=== PATIENT | female | born 1970 | race Caucasian/White ===

== ENCOUNTER 2016-08-10 09:08 | Emergency (ER) | payer OTHER ==
[2016-08-10 09:15] VITALS: RESP 18
[2016-08-10] MEDS ORDERED: SODIUM CHLORIDE 0.9% 1,000 ML IV STA (09:22)
[2016-08-10] MEDS ORDERED: DICYCLOMINE 10 MG/ML 2 ML AMP IM STA (09:22)
[2016-08-10] MEDS ORDERED: RX INFO: IV CONTRAST WAS GIVEN 1 EACH MISC MISCELLANE PRN (09:22)
[2016-08-10] MEDS ORDERED: ONDANSETRON 4 MG/2 ML VIAL IVP STA (09:22)
--- NOTE | 2016-08-10 09:29 | ED ---
Abdominal Pain HPI - General Chief Complaint: Abdominal Pain Stated Complaint: abd pain Time Seen by Provider: 08/10/16 09:17 Source: patient, RN notes reviewed Mode of arrival: ambulatory Limitations: no limitations - History of Present Illness Initial Comments: 45-year-old female presents to the emergency department with a chief complaint of lower abdominal pain. Patient states been going on for about the last week. Patient states that across her abdomen. Patient states that she has had nausea and vomiting with this. Patient states she went to medics presents for dysuria. Patient has a vaginal discharge and pain. Patient denies any fever chills. Patient states that she was concerned due to her symptoms so she thought that she should be evaluated.Patient denies any recent fever, chills, shortness of breath, chest pain, back pain, numbness or tingling, dysuria or hematuria, constipation or diarrhea, headaches or visual changes, or any other current symptoms. - Related Data Home Medications Medication Instructions Recorded Confirmed ALPRAZolam [Xanax] 0.5 mg PO DAILY PRN 01/21/16 08/10/16 Vortioxetine Hydrobromide 10 mg PO DAILY 08/10/16 08/10/16 [Trintellix] Previous Rx's Medication Instructions Recorded Ciprofloxacin HCl [Cipro] 250 mg PO Q12HR #14 tablet 08/10/16 Docusate [Colace] 100 mg PO DAILY #7 capsule 08/10/16 Allergies Allergy/AdvReac Type Severity Reaction Status Date / Time No Known Allergies Allergy Verified 08/10/16 09:38 Review of Systems ROS Statement: Those systems with pertinent positive or pertinent negative responses have been documented in the HPI. ROS Other: All systems not noted in ROS Statement are negative. Past Medical History Past Medical History: No Reported History Additional Past Medical History / Comment(s): CHRONIC CONSTIPATION, STATES COUGH AND SINUS DRAINAGE-INSTRUCTED TO CALL DR UPTON'S OFFICE IF ANY SYMPTOMS BY 01/23/16 AM. History of Any Multi-Drug Resistant Organisms: None Reported Past Surgical History: Tubal Ligation, Uterine Ablation Past Anesthesia/Blood Transfusion Reactions: No Reported Reaction Past Psychological History: Anxiety, Depression Smoking Status: Current every day smoker Past Alcohol Use History: None Reported Additional Past Alcohol Use History / Comment(s): SMOKES 1 PPD. SMOKING FOR APPROX 31 YEARS. STARTED SMOKING AGE 14. Past Drug Use History: None Reported - Past Family History Father Family Medical History: Deep Vein Thrombosis (DVT) Additional Family Medical History / Comment(s): PACEMAKER Mother Family Medical History: Deep Vein Thrombosis (DVT) General Exam - General Exam Comments Initial Comments: General: The patient is awake and alert, in no distress, and does not appear acutely ill. Eye: Pupils are equal, round and reactive to light, extra-ocular movements are intact; there is normal conjunctiva bilaterally. No signs of icterus. Ears, nose, mouth and throat: There are moist mucous membranes and no oral lesions. Neck: The neck is supple, there is no tenderness. Cardiovascular: There is a regular rate and rhythm. No murmur, rub or gallop is appreciated. Respiratory: Lungs are clear to auscultation, respirations are non-labored, breath sounds are equal. No wheezes, stridor, rales, or rhonchi. Gastrointestinal: Soft, non-distended, normal tenderness to the umbilicus of the abdomen without masses or organomegaly noted. There is no rebound or guarding present. No CVA tenderness. Bowel sounds are unremarkable. Back: There is no tenderness to palpation in the midline. There is no obvious deformity. No rashes noted. Musculoskeletal: Normal ROM, no tenderness, There is no pedal edema. There is no calf tenderness or swelling. Sensation intact. Pulses equal bilaterally 2+. Neurological: CN II-XII intact, There are no obvious motor or sensory deficits. Coordination appears grossly intact. Speech is normal. Skin: Skin is warm and dry and no rashes or lesions are noted. Psychiatric: Cooperative, appropriate mood & affect, normal judgment. Limitations: no limitations Course Vital Signs 08/10/16 09:11 Temperature 98.2 F Pulse Rate 98 Respiratory 18 Rate Blood Pressure 149/90 O2 Sat by Pulse 100 Oximetry Medical Decision Making - Medical Decision Making 45-year-old female presents emergency Department chief complaint of abdominal pain. This time labwork and CAT scan were reviewed. At this time the patient does appear to have hematuria. Patient denies any changes in urination however there is concern for possible UTI versus other causes. We discussed we will start her on antibiotic however she also needs to see the urologist or hematuria. We discussed this also constipation and will be per director social. We discussed return parameters and follow-up and all patient's questions. She stated that she understood and she is negative plan. She will be discharged home. - Lab Data Result diagrams: 08/10/16 09:42 08/10/16 09:42 Lab Results 08/10/16 08/10/16 08/10/16 Range/Units 09:42 09:42 09:42 WBC 7.3 (3.8-10.6) k/uL RBC 4.50 (3.80-5.40) m/uL Hgb 14.6 (11.4-16.0) gm/dL Hct 44.3 (34.0-46.0) % MCV 98.3 (80.0-100.0) fL MCH 32.5 (25.0-35.0) pg MCHC 33.1 (31.0-37.0) g/dL RDW 12.8 (11.5-15.5) % Plt Count 329 (150-450) k/uL Neutrophils % 65 % Lymphocytes % 25 % Monocytes % 5 % Eosinophils % 2 % Basophils % 1 % Neutrophils # 4.8 (1.3-7.7) k/uL Lymphocytes # 1.8 (1.0-4.8) k/uL Monocytes # 0.3 (0-1.0) k/uL Eosinophils # 0.2 (0-0.7) k/uL Basophils # 0.1 (0-0.2) k/uL Sodium 139 (137-145) mmol/L Potassium 4.5 (3.5-5.1) mmol/L Chloride 106 (98-107) mmol/L Carbon Dioxide 24 (22-30) mmol/L Anion Gap 9 mmol/L BUN 14 (7-17) mg/dL Creatinine 0.65 (0.52-1.04) mg/dL Est GFR (MDRD) Af Amer >60 (>60 ml/min/1.73 sqM) Est GFR (MDRD) Non-Af >60 (>60 ml/min/1.73 sqM) Glucose 86 (74-99) mg/dL Calcium 9.5 (8.4-10.2) mg/dL Total Bilirubin 0.8 (0.2-1.3) mg/dL AST 26 (14-36) U/L ALT 20 (9-52) U/L Alkaline Phosphatase 62 (38-126) U/L Total Protein 7.6 (6.3-8.2) g/dL Albumin 4.5 (3.5-5.0) g/dL Amylase 67 (30-110) U/L Lipase 77 (23-300) U/L Urine Color Yellow Urine Appearance Clear (Clear) Urine pH 6.5 (5.0-8.0) Ur Specific [place] 1.022 (1.001-1.035) Urine Protein Trace H (Negative) Urine Glucose (UA) Negative (Negative) Urine Ketones 1+ H (Negative) Urine Blood Moderate H (Negative) Urine Nitrite Negative (Negative) Urine Bilirubin Negative (Negative) Urine Urobilinogen <2.0 (<2.0) mg/dL Ur Leukocyte Esterase Negative (Negative) Urine RBC 36 H (0-5) /hpf Urine WBC 1 (0-5) /hpf Ur Squamous Epith Cells 3 (0-4) /hpf Urine Bacteria Rare H (None) /hpf Urine Mucus Rare H (None) /hpf Disposition Clinical Impression: Hematuria, UTI (urinary tract infection), Constipation Disposition: HOME SELF-CARE Condition: Stable Instructions: Hematuria (ED) Additional Instructions: Please use medication as discussed. Please follow up with family doctor if symptoms have not improved over the next two days. Please return to the emergency room if your symptoms increase or worsen or for any other concerns. Prescriptions: Ciprofloxacin HCl [Cipro] 250 mg PO Q12HR #14 tablet Docusate [Colace] 100 mg PO DAILY #7 capsule Referrals: Zoey Mccann III, MD [Primary Care Provider] - 1-2 days Luis Eduardo Higgins MD [STAFF PHYSICIAN] - 1-2 days Time of Disposition: 11:27
[2016-08-10 10:19] LABS: Basophils # (A) 0.1 k/uL (0-0.2); Basophils % (A) 1 %; CH 32.2; CHCM 32.9; Eosinophils # (A) 0.2 k/uL (0-0.7); Eosinophils % (A) 2 %; HCT 44.3 % (34.0-46.0); HDW 2.28; HGB 14.6 gm/dL (11.4-16.0); Luc # (Auto) 0.14; Luc % (Auto) 2; Lymphocytes # (A) 1.8 k/uL (1.0-4.8); Lymphocytes % (A) 25 %; MCH 32.5 pg (25.0-35.0); MCHC 33.1 g/dL (31.0-37.0); MCV 98.3 fL (80.0-100.0); Mean Platelet Volume 6.4; Monocytes # (A) 0.3 k/uL (0-1.0); Monocytes % (A) 5 %; Neutrophils # (A) 4.8 k/uL (1.3-7.7); Neutrophils % (A) 65 %; RDW 12.8 % (11.5-15.5); WBC 7.3 k/uL (3.8-10.6); WBC (Perox) 7.15
[2016-08-10 10:26] LABS: ALT 20 U/L (9-52); AST 26 U/L (14-36); Alkaline Phosphatase 62 U/L (38-126); Amylase 67 U/L (30-110); Anion Gap 9 mmol/L; Appearance,Urine Clear (Clear); Bacteria,Urine Rare /hpf; Bilirubin,Urine Negative (Negative); Blood Urea Nitrogen 14 mg/dL (7-17); Calcium 9.5 mg/dL (8.4-10.2); Carbon Dioxide 24 mmol/L (22-30); Chloride 106 mmol/L (98-107); Glucose 86 mg/dL (74-99); Glucose,Urine (UA) Negative (Negative); Ketones,Urine 1+ (Negative); Leukocyte Esterase,Urine Negative (Negative); Mucus,Urine Rare /hpf; Nitrite,Urine Negative (Negative); Non-African American GFR(MDRD) >60 (>60 ml/min/1.73 sqM); PH, Urine 6.5 (5.0-8.0); Particle Count 3215; Protein,Urine Trace (Negative); RBC,Urine 36 /hpf (0-5); Sodium 139 mmol/L (137-145); Specific Gravity,Urine 1.022 (1.001-1.035); Squamous Epithelial Cell,Urine 3 /hpf (0-4); Total Bilirubin 0.8 mg/dL (0.2-1.3); Total Protein 7.6 g/dL (6.3-8.2); UA Billing (MACRO vs. MICRO) MICRO; Urobilinogen,Urine <2.0 mg/dL (<2.0); WBC,Urine 1 /hpf (0-5)
[2016-08-10 10:52] LABS: Potassium 4.5 mmol/L (3.5-5.1)
--- NOTE | 2016-08-10 11:24 | CT ---
EXAMINATION TYPE: CT abdomen pelvis w con DATE OF EXAM: 08/10/2016 10:11 AM COMPARISON: Pain INDICATION: pelvic pain DLP: 336.9 mGycm, Automated exposure control for dose reduction was used. CONTRAST: 100 mL of Omnipaque 300. Study performed without Oral Contrast TECHNIQUE: Axial images were obtained from above the diaphragm to the pubic rami in the axial plane a t 5 mm thick sections. Reconstructed images are reviewed on the computer in the coronal plane. FINDINGS: Limited CT sections are obtained the lung bases. The lung bases are clear. CT ABDOMEN: Liver: Normal Spleen: Normal Pancreas: Normal Adrenal glands: The adrenal glands are normal. Gallbladder: Normal Kidneys: No masses are evident. No hydronephrosis is present. No cysts are present. Delayed images were obtained through the kidneys, which remain unremarkable. Aorta: Vascular calcification is within the aorta. Inferior vena cava: Normal. CT PELVIS: Loops of bowel within the abdomen and pelvis are normal. Fecal debris is within the distal colon. Appendix: Normal as visualized. Urinary bladder: Normal. Genitourinary structures: Uterus is unremarkable. Adnexal regions are clear. Osseous structures: No suspicious lytic or sclerotic lesions. IMPRESSIONS: 1. Unremarkable CT abdomen and pelvis. 2. Mild fecal retention sigmoid colon.
[2016-08-10 11:42] VITALS: BP 128/83; PULSE 81; TEMP 98.1
== END 2016-08-10 18:03 | disposition home or self-care (01) ==
LOC: EC 09:08
DX: N39.0 Urinary tract infection, site not specified (principal); K59.00 Constipation, unspecified; R11.2 Nausea with vomiting, unspecified; F32.9 Major depressive disorder, single episode, unspecified; F41.9 Anxiety disorder, unspecified; F17.200 Nicotine dependence, unspecified, uncomplicated; Z79.899 Other long term (current) drug therapy; Z98.51 Tubal ligation status
CPT/HCPCS: 36415; 80053; 82150; 83690; 85025; 81001; 74177; 99284; 96374; 96372; J0500; J2405; Q9967

== ENCOUNTER → 2022-09-29 | Outpatient (CLI) | payer OTHER ==
[2022-09-29 11:16] LABS: BUN/Creat Ratio 23.44 Ratio (12.00-20.00); Blood Urea Nitrogen 21.1 mg/dL (9.0-27.0); Calcium 9.9 mg/dL (8.7-10.3); Chloride 101 mmol/L (96-109); Glucose 109 mg/dL (70-110); Potassium 4.5 mmol/L (3.5-5.5); Sodium 140 mmol/L (135-145)
[2022-09-29 11:51] LABS: Basophils % (A) 1.2 %; Eosinophils # (A) 0.27 X 10*3/uL (0.04-0.35); Eosinophils % (A) 3.2 %; HCT 45.1 % (37.2-46.3); HGB 14.4 d/dL (12.0-15.0); Lymphocytes # (A) 2.48 X 10*3/uL (0.90-5.00); Lymphocytes % (A) 29.8 %; MCH 31.6 pg (27.0-32.0); MCHC 31.9 d/dL (32.0-37.0); MCV 99.1 FL (80.0-97.0); Mean Platelet Volume 8.7 FL (9.5-12.2); Monocytes # (A) 0.51 X 10*3/uL (0.20-1.00); Monocytes % (A) 6.1 %; NRBC Per 100 WBC 0 X 10*3/uL (0.00-0.01); Neutrophils # (A) 4.95 X 10*3/uL (1.80-7.70); Neutrophils % (A) 59.5 %; Platelet Count 400 X 10*3/uL (140-440); RBC 4.55 X 10*6/uL (4.10-5.20); RDW 12.5 % (11.5-14.5); WBC 8.33 X 10*3/uL (4.50-10.00)
== END | disposition home or self-care (01) ==
LOC: LABWHC1 07:53
PROVIDERS: ATTEND Orthopaedic Surgery Hand Surgery
DX: Z01.818 Encounter for other preprocedural examination (principal); I51.7 Cardiomegaly; M65.311 Trigger thumb, right thumb; G56.01 Carpal tunnel syndrome, right upper limb; R94.31 Abnormal electrocardiogram [ECG] [EKG]
CPT/HCPCS: 36415; 80048; 85025

== ENCOUNTER → 2022-12-10 | Day surgery (SDC) | payer OTHER ==
--- NOTE | 2022-12-08 14:55 | P.HPOR ---
History of Present Illness H&P Date: 12/08/22 Subjective: This is a 51 year old female that presents today for follow up evaluation regarding left thumb pain and thumb, index and middle finger paresthesias. She was seen originally in January of 2022 and underwent b/l thumb trigger finger injections. She states her symptoms were better until 1 month prior, night bracing was also initiated for b/l carpal tunnel syndrome. She denies any inciting event. She has tried a brace on the left thumb that has provided little relief for the trigger finger. She states her left sided numbness with the index, middle and ring fingers are now constant and she has symptoms that wake her from sleep. She tried bracing with temporary relief of her numbness. Physical Examination: LUE: AIN/PIN/Radial/Ulnar/Median motor intact. Radial/Ulnar/Median SILT. 2+/4 Radial/Ulnar pulses palpated. 5/5 APB, 5/5 FDI. Negative Finkelsteins, negative CMC grind, positive Durkan's compression. TTP over thumb A1 basim with locking and catching. Impression: 1.) Left trigger thumb 2.) Left carpal tunnel syndrome Plan: Diagnosis and treatment options were discussed with the patient. She has failed conservative treatment for her left trigger thumb and carpal tunnel syndrome and would like to pursue a left endoscopic vs open carpal tunnel release and left thumb A1 basim release. Risks and benefits of surgery including bleeding, infection, damage to surrounding tissue, need for further surgery, possible need to convert to open procedure, residual numbness were discussed and the patient wished to go forward with surgery. 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 CC: Car Mccann MD -William Brown DO Orthopedic Hand/Upper Extremity Surgeon Past Medical History Past Medical History: No Reported History Additional Past Medical History / Comment(s): SINUS DRAINAGE History of Any Multi-Drug Resistant Organisms: None Reported Past Surgical History: Tubal Ligation, Uterine Ablation Additional Past Surgical History / Comment(s): 10/09/22 RIGHT CARPAL TUNNEL Past Anesthesia/Blood Transfusion Reactions: No Reported Reaction Past Psychological History: Anxiety, Depression Smoking Status: Current every day smoker Past Alcohol Use History: None Reported Additional Past Alcohol Use History / Comment(s): SMOKES 1 PPD. SMOKING FOR APPROX 31 YEARS. STARTED SMOKING AGE 14. Past Drug Use History: None Reported - Past Family History Father Family Medical History: Deep Vein Thrombosis (DVT) Additional Family Medical History / Comment(s): PACEMAKER Mother Family Medical History: Deep Vein Thrombosis (DVT) Medications and Allergies Home Medications Medication Instructions Recorded Confirmed Type Plhdyjb-Dhdg-Tini [id number] 1 - 2 tab PO Q6H PRN 10/07/22 10/09/22 History [Excedrin] Allergies Allergy/AdvReac Type Severity Reaction Status Date / Time No Known Allergies Allergy Verified 12/05/22 14:45 Physical Examination Osteopathic Statement: *. No significant issues noted on an osteopathic structural exam other than those noted in the History and Physical/Consult.
[~2022-12-10] MED LIST: BUPIVACAINE (PF) 0.5% 30 ML VIAL SQ ONE; DEXAMETHASONE SOD PHOSPHATE 4 MG/ML 1 ML VIAL IVP ONE; LACTATED RINGERS 1,000 ML IV SCH; LIDOCAINE 1% (10MG/ML) FOR IV START INTRADERMA PRN; LIDOCAINE 2% INJ 20 MG/ML SQ ONE; MIDAZOLAM 2 MG/2 ML VIAL ONE; ONDANSETRON 4 MG/2 ML VIAL ONE; PROPOFOL 10 MG/ML 20 ML VIAL IV ONE; Pre Op ABX Message 1 EACH MISC MISCELLANE ONE; fentaNYL (PF) 50 MCG/ML 2 ML AMP ONE
[2022-12-10 09:39] VITALS: TEMP 98.5
--- NOTE | 2022-12-10 10:35 | P.OP ---
Date of Procedure: 12/10/22 Preoperative Diagnosis: 1.) Left carpal tunnel syndrome 2.) Left thumb trigger finger Postoperative Diagnosis: 1.) Left carpal tunnel syndrome 2.) Left thumb trigger finger Procedure(s) Performed: 1.) Left endoscopic carpal tunnel release 2.) Left thumb trigger finger A1 basim release Anesthesia: MAC Surgeon: William Brown Territory Manager #1: Thuan Lubin Estimated Blood Loss (ml): 0 Pathology: none sent Condition: stable Disposition: PACU Description of Procedure: This is a 52 year old female who presents today for a left endoscopic carpal tunnel and left thumb A1 basim release after having failed conservative treatment in the past. Risks and benefits of surgery were discussed with the patient including bleeding, damage to surrounding tissue, infection, need to convert to open procedure, need for further surgery as well as risks of anesthesia including pulmonary embolism and even and the patient wished to proceed with surgical intervention. The patients was seen in the pre-operative area by myself. Consent and H&P were completed and updated. The correct extremity was marked in the pre-operative area by myself and all other questions were answered. Operative Narrative: The patient was brought to the operating room by the department of anesthesia. They remained on the portable stretcher and a rolling hand table was brought to the side of the operative extremity. Pre-operative time out was performed indicating the correct patient, procedure and laterality. All in the room agreed. The patient was then drifted off to sleep by the department of anesthesia. MAC anesthesia was utilized and a 50:50 mixture of 1% Lidocaine and 0.5% bupivacaine was injected into the subcutaneous tissues of the palmar skin, 10ccs total. A nonsterile tourniquet was then applied to the operative extremity and the left upper extremity was then prepped and draped in normal sterile fashion. The operative extremity was the exsanguinated with an esmarch bandage and the tourniquet was inflated to 250mmHg. 15 blade scalpel was utilized to make a transverse incision on the palmar skin just ulnar to the palmaris longus tendon at the level of the distal wrist crease. Ragnell retractor was then placed radially and blunt dissection was performed to reveal the distal forearm fascia. This was lifted with fine Tung pick ups and Littler tenotomy scissors were then used to open the forearm fascia transversely and a double skin hook was then placed. Hamate finder was placed into the carpal tunnel and then sequential sized dilators were inserted followed by the synovial elevator to separate the flexor tenosynovium from the undersurface of the transverse carpal ligament and a washboard texture was felt. The MicroAire endoscopic carpal tunnel release system gun was the then inserted into the carpal tunnel hugging the deep portion of the transverse carpal ligament in line with the base of the ring finger. Transverse fibers of the ligament were directly visualized. Pressure was applied on the palm to reveal the distal extent of the transverse carpal ligament. The blade was then deployed and the distal half of the transverse carpal ligament was released. The scope was then brought distal again and remaining transverse fibers were incised with the blade. The proximal half of the transverse carpal ligament was then divided and again the scope was advanced distal and remaining transverse fibers were incised with the blade. The radial and ulnar leaflets were directly visualized and mobile consistent with complete release. Tenotomy scissors were then utilized to release the remaining distal forearm fascia under direct visualization taking care to preserve the palmar cutaneous branch of the median nerve. Transverse incision was made at the base of the thumb overlying the A1 basim. Blunt dissection was taken down to the level of the A1 basim. Ragnell retractors were placed both radially and ulnarly to protect neurovascular bundles. Littler tenotomy scissors were then used to release the A1 basim from proximal to distal under direct visualization. Proximal fascial attachments were released. The tendon was then taken through range of motion and no locking or catching was appreciated. The wound was then closed with interrupted 4-0 nylon sutures in a horizontal mattress fashion. Skin closure was performed at the level of the wrist with interrupted 4-0 Monocryl suture followed by steri strips. Sterile dressing was applied consisting of adaptic, 4x4s, Webril, and an bertha bandage. Tourniquet was let down and the hand immediately was well perfused. The patient was then woken by the department of anesthesia and transferred to PACU in stable condition. Thuan EM was present for the case in its entirety and assisted in major portions of the case and protection of vital neurovascular structures. William Brown D.O. Orthopedic Hand/Upper Extremity Surgeon
[2022-12-10 13:15] VITALS: BP 173/108; PULSE 80; RESP 14
== END | disposition home or self-care (01) ==
LOC: OR 09:01
PROVIDERS: ATTEND Orthopaedic Surgery Hand Surgery
DX: G56.02 Carpal tunnel syndrome, left upper limb (principal); M65.312 Trigger thumb, left thumb; F41.9 Anxiety disorder, unspecified; F32.A Depression, unspecified; F17.210 Nicotine dependence, cigarettes, uncomplicated; Z79.899 Other long term (current) drug therapy
CPT/HCPCS: 26055; 29848; J2001; J2250; J1100; J2405; J3010; J2704; J0665

== ENCOUNTER → 2023-11-27 | Outpatient (CLI) | payer BC, OTHER ==
--- NOTE | 2023-11-27 13:35 | XR ---
EXAMINATION TYPE: XR foot complete 3 views LT DATE OF EXAM: 11/27/2023 Comparison: None Clinical History: 53-year-old female Z85.3 PERSONAL HISTORY OF MALIGNANT NEOPLASM OF BR Findings: No acute fracture, subluxation, dislocation. No periostitis or osteolysis. There may be a mild early bunion. Small os peroneum. Impression: No acute osseous abnormality seen.
== END | disposition home or self-care (01) ==
LOC: RADXRMAIN 08:18
PROVIDERS: ATTEND Family Medicine
DX: R52 Pain, unspecified (principal)

== ENCOUNTER 2024-09-17 16:38 | Observation (INO) | payer BC ==
[2024-09-17 17:24] LABS: Basophils # (A) 0.09 10*3/uL (0.00-0.10); Basophils % (A) 1.0 %; Eosinophils # (A) 0.17 10*3/uL (0.04-0.35); Eosinophils % (A) 1.8 %; HCT 41.6 % (37.2-46.3); HGB 14.0 g/dL (12.0-15.0); Lymphocytes # (A) 3.58 10*3/uL (0.90-5.00); Lymphocytes % (A) 38.1 %; MCH 32.0 pg (27.0-32.0); MCHC 33.7 g/dL (32.0-37.0); MCV 95.2 fL (80.0-97.0); Monocytes # (A) 0.64 10*3/uL (0.20-1.00); Monocytes % (A) 6.8 %; Neutrophils # (A) 4.89 10*3/uL (1.80-7.70); Neutrophils % (A) 52.1 %; Platelet Count 340 10*3/uL (140-440); RBC 4.37 10*6/uL (4.10-5.20); RDW 11.9 % (11.5-14.5); WBC 9.39 10*3/uL (4.50-10.00)
[2024-09-17 17:37] LABS: ALT 15 U/L (4-34); African American GFR (CKD) >90 (>60 ml/min/1.73 sqM); Albumin 4.2 g/dL (3.5-5.0); Anion Gap 10 mmol/L; Blood Urea Nitrogen 33 mg/dL (7-17); Calcium 9.9 mg/dL (8.4-10.2); Carbon Dioxide 23 mmol/L (22-30); Chloride 103 mmol/L (98-107); Glucose 123 mg/dL (74-99); Non-African American GFR(CKD) 87 (>60 ml/min/1.73 sqM); Sodium 136 mmol/L (137-145); Total Protein 6.8 g/dL (6.3-8.2)
--- NOTE | 2024-09-17 17:37 | XR ---
EXAMINATION TYPE: XR chest 2V DATE OF EXAM: 09/17/2024 5:17 PM COMPARISON: None CLINICAL INDICATION: Female, 53 years old with history of Chest Pain; [facility] TECHNIQUE: XR chest 2V Frontal and lateral views of the chest. FINDINGS: Lungs/Pleura: There is no evidence of pleural effusion, focal consolidation, or pneumothorax. Pulmonary vascularity: Unremarkable. Heart/mediastinum: Cardiomediastinal silhouette is unremarkable. Musculoskeletal: No acute osseous pathology. Other findings: None IMPRESSION: No acute cardiopulmonary disease/process. [facility], , 09/17/2024 5:35 PM
--- NOTE | 2024-09-17 17:39 | ED ---
Chest Pain HPI - General Chief Complaint: Chest Pain Stated Complaint: Shortness of breath/Fatigue Time Seen by Provider: 09/17/24 17:30 Source: patient, RN notes reviewed, old records reviewed Mode of arrival: ambulatory Limitations: no limitations - History of Present Illness Initial Comments: This is a 53 female to the ER for evaluation of chest pain this is a reevaluation of chest pain recent ER visit for chest pain and headaches. Patient was placed on antibiotics for sinus infection presents today for right- sided chest pain also present shortness of breath cough MD Complaint: chest pain -: days(s) Onset: during rest, during exertion Pain Location: right chest Severity: moderate Severity scale (1-10): 5 Quality: tightness Consistency: constant Improves With: nothing Worsens With: nothing Other Symptoms: cough, palpitations Treatments Prior to Arrival: none - Related Data Home Medications Medication Instructions Recorded Confirmed Olmesartan Medoxomil 40 mg PO DAILY 09/17/24 09/17/24 Rosuvastatin [Crestor] 20 mg PO DAILY 09/17/24 09/17/24 Previous Rx's Medication Instructions Recorded Ipratropium/Albuter 20-100Mcg 1 puff INHALATION BID 30 Days #4 gm 09/20/24 [Combivent Respimat 20-100Mcg Inhaler] Allergies Allergy/AdvReac Type Severity Reaction Status Date / Time No Known Allergies Allergy Verified 09/17/24 19:44 Review of Systems ROS Statement: Those systems with pertinent positive or pertinent negative responses have been documented in the HPI. ROS Other: All systems not noted in ROS Statement are negative. EKG Findings - EKG Comments: EKG Findings:: EKG is sinus 85 DE 175 QRS 81 QTc 374 - EKG Results: EKG: interpreted by VANESSAD Past Medical History Past Medical History: No Reported History Additional Past Medical History / Comment(s): SINUS DRAINAGE History of Any Multi-Drug Resistant Organisms: None Reported Past Surgical History: Tubal Ligation, Uterine Ablation Additional Past Surgical History / Comment(s): 10/09/22 RIGHT CARPAL TUNNEL Past Anesthesia/Blood Transfusion Reactions: No Reported Reaction Past Psychological History: Anxiety, Depression Smoking Status: Current every day smoker Past Alcohol Use History: None Reported Past Drug Use History: None Reported - Past Family History Father Family Medical History: Deep Vein Thrombosis (DVT) Additional Family Medical History / Comment(s): PACEMAKER Mother Family Medical History: Deep Vein Thrombosis (DVT) General Exam Limitations: no limitations General appearance: alert, in no apparent distress Head exam: Present: atraumatic, normocephalic, normal inspection Eye exam: Present: normal appearance, PERRL, EOMI. Absent: scleral icterus, conjunctival injection, periorbital swelling ENT exam: Present: normal exam, mucous membranes moist Neck exam: Present: normal inspection. Absent: tenderness, meningismus, lymphadenopathy Respiratory exam: Present: normal lung sounds bilaterally, respiratory distress, wheezes, decreased breath sounds, prolonged expiratory. Absent: rales, rhonchi, stridor Cardiovascular Exam: Present: normal rhythm, tachycardia, normal heart sounds. Absent: systolic murmur, diastolic murmur, rubs, gallop, clicks GI/Abdominal exam: Present: soft, normal bowel sounds. Absent: distended, tenderness, guarding, rebound, rigid Extremities exam: Present: normal inspection, full ROM, normal capillary refill. Absent: tenderness, pedal edema, joint swelling, calf tenderness Back exam: Present: normal inspection Neurological exam: Present: alert, oriented X3, CN II-XII intact Psychiatric exam: Present: normal affect, normal mood Skin exam: Present: warm, dry, intact, normal color. Absent: rash Course Vital Signs 09/17/24 09/17/24 09/17/24 16:57 17:58 18:21 Temperature 97.8 F Pulse Rate 120 H 90 92 Respiratory 20 16 Rate Blood Pressure 103/52 116/76 O2 Sat by Pulse 99 98 Oximetry 09/17/24 09/17/24 09/17/24 18:44 19:14 20:53 Temperature Pulse Rate 88 87 86 Respiratory 14 Rate Blood Pressure 126/75 O2 Sat by Pulse 99 Oximetry 09/17/24 09/17/24 21:06 22:41 Temperature Pulse Rate 81 96 Respiratory 14 Rate Blood Pressure 93/63 O2 Sat by Pulse 99 Oximetry - Reevaluation(s) Reevaluation #1: 09/17/24 19:06 Medical records reviewed Reevaluation #2: 09/17/24 19:07 Patient's symptoms improved Reevaluation #3: 09/17/24 19:07 Patient informed of results and questions answered Reevaluation #4: Was pt. sent in by a medical professional or institution (Dr., PA, MARBLE CUTTER, urgent care, hospital, or custodial...) When possible be specific @ -no Did you speak to anyone other than the patient for history (EMS, parent, family, police, friend...)? What history was obtained from this source @ -no Did you review nursing and triage notes (agree or disagree)? Why? @ -agree Are old charts reviewed (outside hosp., previous admission, EMS record, old EKG, old radiological studies, urgent care reports/EKG's, custodial records)? Report findings @ -yes Differential Diagnosis (chest pain, altered mental status, abdominal pain women, abdominal pain men, vaginal bleeding, weakness, fever, dyspnea, syncope, headache, dizziness, GI bleed, back pain, seizure, CVA, palpatations, mental health, musculoskeletal)? @ -prior EKG interpreted by me (3pts min.). @ -yes X-rays interpreted by me (1pt min.). @ -yes negative for acute disease CT interpreted by me (1pt min.). @ -no U/S interpreted by me (1pt. min.). @ -no What testing was considered but not performed or refused? (CT, X-rays, U/S, labs)? Why? @ -none What meds were considered but not given or refused? Why? @ -none Did you discuss the management of the patient with other professionals (professionals i.e. , PA, MARBLE CUTTER, lab, RT, psych nurse, medical social consultant, content development manager, teacher, weapons officer, child support case officer)? Give summary @ -no Was smoking cessation discussed for >3mins.? @ -no Was critical care preformed (if so, how long)? @ -no Were there social determinants of health that impacted care today? How? (Homelessness, low income, unemployed, alcoholism, drug addiction, transportation, low edu. Level, literacy, decrease access to med. care, detention, rehab)? @ -none Was there de-escalation of care discussed even if they declined (Discuss DNR or withdrawal of care, Hospice)? DNR status @ -no What co-morbidities impacted this encounter? (DM, HTN, Smoking, COPD, CAD, Cancer, CVA, ARF, Chemo, Hep., AIDS, mental health diagnosis, sleep apnea, morbid obesity)? @ -none Was patient admitted / discharged? Hospital course, mention meds given and route, prescriptions, significant lab abnormalities, going to OR and other pertinent info. @ - 53 female who presents for evaluation of chest pain does appear to be right-sided chest pain negative D-dimer, patient will be admitted for chest pain observation does appear to have COPD exacerbation with long history of smoking today Admitted Undiagnosed new problem with uncertain prognosis? @ -no Drug Therapy requiring intensive monitoring for toxicity (Heparin, Nitro, Insulin, Cardizem)? @ -no Were any procedures done? @ -no Diagnosis/symptom? @ -Chest pain with chest pain Acute, or Chronic, or Acute on Chronic? @ -Acute Uncomplicated (without systemic symptoms) or Complicated (systemic symptoms)? @ -Complicated Side effects of treatment? @ -no Exacerbation, Progression, or Severe Exacerbation? @ -exacerbation Poses a threat to life or bodily function? How? (Chest pain, [place], [place], pneumonia, PE, COPD, DKA, ARF, appy, cholecystitis, CVA, Diverticulitis, Homicidal, Suicidal, threat to staff... and all critical care pts) @ -yes with chest pain Reevaluation #5: Differential Chest Pain: Stable Angina, Unstable Angina, STEMI, NSTEMI Aortic Dissection, Pneumothorax, Musculoskeletal, Esophageal Spasm GERD, Cholecystitis, Pancreatitis, Zoster, this is not meant to be an all-inclusive list. Differential Dyspnea: Coronary syndrome, arrhythmia, tamponade, asthma, COPD, pulmonary embolism, pneumonia, pneumothorax, pulmonary effusion, anaphylaxis, diabetic ketoacidosis, flailed chest, pulmonary contusion, diaphragmatic rupture, anemia, neuromuscular, this is not meant to be an all-inclusive list. - Consultations Consultation #1: Spoke with [facility] who agrees to admit this patient Chest [facility] 53 female who presents for evaluation of chest pain does appear to be right- sided chest pain negative D-dimer, patient will be admitted for chest pain observation does appear to have COPD exacerbation with long history of smoking today Disposition Clinical Impression: Atypical chest pain, Chest pain, Acute bronchitis Disposition: ADMITTED IP TO THIS HOSP Condition: Fair Is patient prescribed a controlled substance at d/c from ED?: No Time of Disposition: 19:00
[2024-09-17 17:42] LABS: Magnesium 2.0 mg/dL (1.6-2.3); Potassium 4.9 mmol/L (3.5-5.1)
[2024-09-17 17:43] LABS: AST 29 U/L (14-36); Alkaline Phosphatase 66 U/L (38-126)
[2024-09-17 17:55] LABS: INR 1.0 (<1.2); Partial Thromboplastin Time 25.9 sec (22.0-30.0); Prothrombin Time 11.0 sec (10.0-12.5)
[2024-09-17] MEDS: methylPREDNISolone SOD SUCCI 125 MG/2 ML VIAL IV STA (18:05)
[2024-09-17] MEDS: IPRATROPIUM-ALBUTEROL 3 ML NEB INHALATION STA ×2 (18:21→20:52)
[2024-09-17] MEDS ORDERED: NALOXONE 0.4 MG/ML 1 ML VIAL IV PRN (19:05)
[2024-09-17] MEDS ORDERED: ONDANSETRON 4 MG/2 ML VIAL IVP PRN (19:05)
[2024-09-17] MEDS ORDERED: MORPHINE SULFATE 4 MG/ML SYRINGE IV PRN (19:05)
[2024-09-17] MEDS: KETOROLAC 15 MG/ML 1 ML VIAL IVP STA (19:08)
[2024-09-17] MEDS: SODIUM CHLORIDE 0.9% 1,000 ML IV SCH (19:14)
[2024-09-18 11:16] LABS: T4, Free (Free Thyroxine) 0.86 ng/dL (0.78-2.19)
--- NOTE | 2024-09-18 11:39 | P.CRDCN ---
History of Present Illness Consult date: 09/18/24 Consult reason: shortness of breath History of present illness: The patient is a 53-year-old female who presented to the emergency room with new onset of shortness of breath. She states this started last week while she was at work. She does have associated heaviness in her chest. She states she was recently seen at [facility] [place] for similar symptoms. She states she was told she did not have a heart attack but that she had an overactive thyroid. Due to her symptoms not improving she came back to the emergency room. She states she is having no symptoms now while resting in bed. DIAGNOSTICS: EKG shows sinus mechanism without ST or T wave abnormalities Chest x-ray shows Lab data: WBC 9.3, hemoglobin 14.0, hematocrit 41.6, platelet 340, D-dimer 0.52, sodium 136, potassium 4.9, BUN 33, creatinine 0.77, magnesium 2.0, AST 29, ALT 15, troponins negative x 3, BNP less than 20 REVIEW OF SYSTEMS: No fever or chills. No cough or expectoration. No diaphoresis. Patient denies headache, dizziness, blurred vision, double vision. Patient denies any stomach discomfort. No nausea, vomiting. No hematochezia. No hematemesis. Denies any black stools or blood in his stools. Denies dysuria or hematuria. No muscle weakness or numbness. PHYSICAL EXAMINATION: This is a 53-year-old female in no apparent distress at the time of my examination. HEENT: Head is atraumatic, normocephalic. Pupils are equal, round. S There is no jugular venous distention. No carotid bruit is heard. CHEST EXAMINATION: Lungs are clear to auscultation. No chest wall tenderness is noted on palpation or with deep breathing. HEART EXAMINATION: Heart regular rate and rhythm. S1, S2 heard. No murmurs, gallops or rub. ABDOMEN: Soft, nontender. Bowel sounds are heard. No organomegaly noted. EXTREMITIES: 2+ peripheral pulses with no evidence of peripheral edema and no calf tenderness noted. NEUROLOGIC EXAMINATION: Patient is awake, alert and oriented x3. FINAL ASSESSMENT AND PLAN: Shortness of breath Chest heaviness History hypertension History hyperlipidemia PLAN: Check TSH level as patient states she was recently told she had an overactive thyroid Echocardiogram and Doppler study Resume home medications Further recommendations to be based on clinical course I am dictating on behalf of Dr Roger Justice's history/physical and assessmen t/plan. Past Medical History Past Medical History: No Reported History Additional Past Medical History / Comment(s): SINUS DRAINAGE History of Any Multi-Drug Resistant Organisms: None Reported Past Surgical History: Tubal Ligation, Uterine Ablation Additional Past Surgical History / Comment(s): 10/09/22 RIGHT CARPAL TUNNEL Past Anesthesia/Blood Transfusion Reactions: No Reported Reaction Past Psychological History: Anxiety, Depression Smoking Status: Current every day smoker Past Alcohol Use History: None Reported Additional Past Alcohol Use History / Comment(s): SMOKES 1 PPD. SMOKING FOR APPROX 31 YEARS. STARTED SMOKING AGE 14. Past Drug Use History: None Reported - Past Family History Father Family Medical History: Deep Vein Thrombosis (DVT) Additional Family Medical History / Comment(s): PACEMAKER Mother Family Medical History: Deep Vein Thrombosis (DVT) Medications and Allergies Home Medications Medication Instructions Recorded Confirmed Type Olmesartan Medoxomil 40 mg PO DAILY 09/17/24 09/17/24 History Rosuvastatin [Crestor] 20 mg PO DAILY 09/17/24 09/17/24 History Allergies Allergy/AdvReac Type Severity Reaction Status Date / Time No Known Allergies Allergy Verified 09/17/24 19:44 Physical Exam Vitals: Vital Signs Temp Pulse Pulse Resp BP BP BP 09/18/24 07:00 97.4 F L 71 16 95/57 09/18/24 00:24 97.5 F L 105 H 18 129/64 09/17/24 23:01 97.6 F 81 18 100/67 09/17/24 22:41 96 14 93/63 09/17/24 21:06 81 09/17/24 20:53 86 09/17/24 19:14 87 14 126/75 09/17/24 18:44 88 09/17/24 18:21 92 09/17/24 17:58 90 16 116/76 09/17/24 16:57 97.8 F 120 H 20 103/52 Pulse Ox 09/18/24 07:00 98 09/18/24 00:24 98 09/17/24 23:01 100 09/17/24 22:41 99 09/17/24 21:06 09/17/24 20:53 09/17/24 19:14 99 09/17/24 18:44 09/17/24 18:21 09/17/24 17:58 98 09/17/24 16:57 99 Intake and Output 09/17/24 09/18/24 09/18/24 22:59 06:59 14:59 Other: # Voids 2 Weight 49.895 kg 49.895 kg Results 09/17/24 17:01 09/17/24 17:01 Cardiac Enzymes 09/17/24 09/17/24 09/17/24 Range/Units 17:01 17:01 20:44 AST 29 (14-36) U/L Troponin I <0.012 <0.012 (0.000-0.034) ng/mL 09/18/24 Range/Units 00:35 AST (14-36) U/L Troponin I <0.012 (0.000-0.034) ng/mL Coagulation 09/17/24 Range/Units 17:01 PT 11.0 (10.0-12.5) sec APTT 25.9 (22.0-30.0) sec CBC 09/17/24 Range/Units 17:01 WBC 9.39 (4.50-10.00) 10*3/uL RBC 4.37 (4.10-5.20) 10*6/uL Hgb 14.0 (12.0-15.0) g/dL Hct 41.6 (37.2-46.3) % Plt Count 340 (140-440) 10*3/uL Comprehensive Metabolic Panel 09/17/24 Range/Units 17:01 Sodium 136 L (137-145) mmol/L Potassium 4.9 (3.5-5.1) mmol/L Chloride 103 (98-107) mmol/L Carbon Dioxide 23 (22-30) mmol/L BUN 33 H (7-17) mg/dL Creatinine 0.77 (0.52-1.04) mg/dL Glucose 123 H (74-99) mg/dL Calcium 9.9 (8.4-10.2) mg/dL AST 29 (14-36) U/L ALT 15 (4-34) U/L Alkaline Phosphatase 66 (38-126) U/L Total Protein 6.8 (6.3-8.2) g/dL Albumin 4.2 (3.5-5.0) g/dL Current Medications Generic Name Dose Route Start Last Admin Trade Name Freq PRN Reason Stop Dose Admin Sodium Chloride 1,000 mls @ 75 mls/hr 09/17/24 19:15 09/17/24 19:14 Saline 0.9% IV 75 mls/hr .[id number] TACOS Administration Ketorolac Tromethamine 15 mg 09/17/24 19:05 Ketorolac 15 Mg/Ml 1 Ml Vial IVP 09/20/24 19:05 Q6HR PRN Moderate Pain (Scale 4 to 6) Morphine Sulfate 4 mg 09/17/24 19:05 Morphine Sulfate 4 Mg/Ml Syringe IV Q4HR PRN Severe Pain (Scale 7 to 10) Naloxone HCl 0.2 mg 09/17/24 19:05 Naloxone 0.4 Mg/Ml 1 Ml Vial IV Q2M PRN Opioid Reversal Ondansetron HCl 4 mg 09/17/24 19:05 Ondansetron 4 Mg/2 Ml Vial IVP Q8HR PRN Nausea And Vomiting Intake and Output 09/17/24 09/18/24 09/18/24 22:59 06:59 14:59 Other: # Voids 2 Weight 49.895 kg 49.895 kg 09/17/24 17:01 09/17/24 17:01
[2024-09-18] MEDS: KETOROLAC 15 MG/ML 1 ML VIAL IVP PRN (11:45)
--- NOTE | 2024-09-18 16:45 | CT ---
EXAMINATION TYPE: CT angio chest CT DLP: 174.4 mGycm, Automated exposure control for dose reduction was used. DATE OF EXAM: 09/18/2024 4:28 PM COMPARISON: Chest radiograph 09/17/2024 CLINICAL INDICATION:Female, 53 years old with history of pe; pt experiencing chest pains TECHNIQUE/CONTRAST: CTA scan of the thorax is performed with IV Contrast, patient injected with 100 ml mL of Isovue 370, pulmonary embolism protocol. MIP images are created and reviewed. FINDINGS: Pulmonary Artery: There is no evidence for a filling defect within the pulmonary vasculature to sugge st acute pulmonary embolism. The pulmonary artery is of normal size. Reflux of contrast into the IV C and hepatic veins. Lungs/Pleura: No evidence of focal consolidation, pleural effusion or pneumothorax. No suspicious pul monary nodule or mass. Minimal biapical pleural-parenchymal scarring. Airway: Large airways are patent. Heart: Size within normal limits.No pericardial effusion. No significant coronary artery calcificatio ns. Vasculature: No evidence of aortic aneurysm. Minimal atherosclerotic calcification of the aorta and i ts branches. Mediastinum: No evidence of adenopathy. Musculoskeletal: No acute osseous abnormalities Soft Tissues: Unremarkable. Lower neck: No significant findings. Upper Abdomen: No significant findings. IMPRESSION: No evidence of pulmonary embolism or acute thoracic process. [facility], , 09/18/2024 4:42 PM
[2024-09-18] MEDS: LOSARTAN 50 MG TAB PO SCH (17:22)
[2024-09-18 18:48] LABS: Bilirubin,Urine Negative (Negative); Blood,Urine Small (Negative); Color,Urine Light Yellow; Glucose,Urine (UA) Negative (Negative); Ketones,Urine Negative (Negative); Leukocyte Esterase,Urine Negative (Negative); Nitrite,Urine Negative (Negative); PH, Urine 6.5 (5.0-8.0); Protein,Urine Negative (Negative); RBC,Urine 5 /hpf (0-5); Squamous Epithelial Cell,Urine <1 /hpf (0-4); Urobilinogen,Urine <2.0 mg/dL (<2.0)
[2024-09-18 18:49] LABS: Specific Gravity,Urine >1.050 (1.001-1.035)
--- NOTE | 2024-09-18 21:59 | HP ---
HISTORY AND PHYSICAL CHIEF COMPLAINT: Chest pain, shortness of breath and fatigue. HISTORY OF PRESENT ILLNESS: This 53-year-old woman with a past medical history of multiple medical issues, was complaining of shortness of breath as well as some chest heaviness. The patient was apparently also seen in [facility] with ER with outpatient recommend outpatient followup at this time. The patient was thought to have a hyperthyroidism at that time. The TSH was found to be 0.081 and free T4 was found to be within normal limits. The D-dimer is normal. There is no history of fever, rigors or chills at this time. Cardiology evaluation in progress. EKG did not show any acute abnormality. Cardiology was recommended 2D echo with Doppler. The patient apparently has an outpatient stress also planned at this time. There is no history of fever, rigors, or chills. PAST MEDICAL HISTORY: Reviewed include sinus drainage. Rest of the history from chart is also reviewed. HOME MEDICATIONS: Reviewed include Crestor. ALLERGIES: None. FAMILY HISTORY: History of DVT and pacemaker in the family. SOCIAL HISTORY: History of smoking. REVIEW OF SYSTEMS: Fourteen-point review of systems negative, except as mentioned earlier. PHYSICAL EXAMINATION: VITAL SIGNS: Pulse 71, blood pressure 90/57, respirations 16. HEENT: Conjunctivae normal. NECK: No jugular venous distention. CARDIOVASCULAR: S1, S2. RESPIRATORY: Breath sounds diminished at the bases. ABDOMEN: Soft, nontender. LEGS: No edema. No swelling. NERVOUS SYSTEM: Nonfocal. LABORATORY DATA: Noted. ASSESSMENT: 1. Chest pain, shortness of breath reevaluation, rule out coronary artery disease. 2. Rule out pulmonary embolism. 3. Hyponatremia. 4. Decreased TSH with normal free T4, possibly sick euthyroid syndrome. 5. History of sinus drainage. 6. History of anxiety, depression, history of nicotine dependence. 7. Family history of deep vein thrombosis. RECOMMENDATION: This 53-year-old woman who presented with multiple complex medical issues. We will monitor the patient closely with symptomatic treatment. I would recommend CT angio of the chest to rule out the possibility of pulmonary embolism because of the family history and otherwise possible stress test. Closely follow with Cardiology. 2D echo with Doppler. Guarded prognosis because of the multiple complex medical issues. Further recommendations to follow. See orders for details. MMODL / IJN: [id number] /
[2024-09-19] MEDS ORDERED: AMINOPHYLLINE 500 MG/20 ML VIAL IV PRN (05:00)
[2024-09-19] MEDS ORDERED: CAFFEINE CITRATE 60 MG/3 ML VIAL IV PRN (05:00)
[2024-09-19] MEDS ORDERED: REGADENOSON 0.4 MG/5 ML SYRINGE IV PRN (06:00)
[2024-09-19 07:51] LABS: HCT 36.1 % (37.2-46.3); HGB 11.7 g/dL (12.0-15.0); MCH 31.5 pg (27.0-32.0); MCHC 32.4 g/dL (32.0-37.0); MCV 97.3 FL (80.0-97.0); NRBC Per 100 WBC 0 X 10*3/uL (0.00-0.01); Platelet Count 305 X 10*3/uL (140-440); RBC 3.71 X 10*6/uL (4.10-5.20); RDW 12.5 % (11.5-14.5); WBC 15.68 X 10*3/uL (4.50-10.00)
[2024-09-19 08:00] LABS: Anion Gap 7.90 mmol/L (4.00-12.00); BUN/Creat Ratio 28.25 Ratio (12.00-20.00); Blood Urea Nitrogen 22.6 mg/dL (9.0-27.0); Carbon Dioxide 23.1 mmol/L (21.6-31.8); Chloride 108 mmol/L (96-109); Glucose 97 mg/dL (70-110); Potassium 4.4 mmol/L (3.5-5.5); Sodium 139 mmol/L (135-145)
[2024-09-19 08:01] LABS: ALT 12 U/L (8-44); AST 15 U/L (13-35); Albumin 3.5 g/dL (3.8-4.9); Albumin/Globulin Ratio 1.94 Ratio (1.60-3.17); Alkaline Phosphatase 65 U/L (41-126); Calcium 8.6 mg/dL (8.7-10.3); Globulin 1.8 g/dL (1.6-3.3); Total Protein 5.3 g/dL (6.2-8.2)
[2024-09-19 08:23] LABS: Basophils # (M) 0.16 X 10*3/uL (0.00-0.10); Eosinophils # (M) 0 X 10*3/uL (0.04-0.35); Lymphocytes # (M) 5.49 X 10*3/uL (0.90-5.00); Monocytes # (M) 0.47 X 10*3/uL (0.20-1.00); Neutrophils # (M) 9.56 X 10*3/uL (1.80-7.70); Neutrophils % (M) 61 %
--- NOTE | 2024-09-19 11:57 | PN ---
PROGRESS NOTE SUBJECTIVE: Fara is a 53-year-old lady, who works at [employer], has a history of hypertension, dyslipidemia, came into hospital, complaining of chest pain. She describes it as a chest pressure without clear-cut relieving or exacerbating factors. She was at [facility] with similar symptoms, was seen in the ER and sent home. Subsequently, she was seen by her primary care physician and comes to our emergency room here at [facility], where she has very similar symptoms. EKG does not reveal ischemic changes. Cardiac enzymes have been negative. She was seen by my associate, Dr. Justice, yesterday. At the time of my evaluation this morning, the patient appears comfortable at rest and free of symptoms stable hemodynamically. OBJECTIVE: GENERAL: On exam, she is comfortable at rest. VITAL SIGNS: Stable. There is no jugular venous distention. Carotid upstroke is normal. There is no bruit. CHEST: Reveals good air entry bilaterally. HEART: Reveals first and second heart sounds. No gallop. EXTREMITIES: Examination of extremities did not reveal any edema. Peripheral pulses are felt. ASSESSMENT: Precordial chest pain, rule out coronary artery disease. PLAN: The patient will undergo a stress echo today. If this is abnormal, I will perform cardiac catheterization on her. She will be discharged to home and outpatient followup arranged. SOOL / MANUELN: [id number] /
[2024-09-19 14:18] LABS: RSV Not Detected (Not Detectd)
[2024-09-19] MEDS: ATORVASTATIN 40 MG TAB PO SCH (14:42)
--- NOTE | 2024-09-20 04:11 | P.PN ---
Subjective Progress Note Date: 09/19/24 This is a 53-year-old female who was recently admitted with chest heaviness along with shortness of breath being closely monitored with cardiology following. Patient is to undergo stress test with echo today which is pending. Patient is maintained on telemetry monitoring continues to report some chest pressure and will be monitored closely. Patient to continue on current cardiac medications and will await cardiology clearance to discuss discharge planning. Review of systems: Constitutional: No reports of fatigue, fever, or chills Cardiovascular: reports of intermittent chest pain and pressure Respiratory: No reports of shortness of breath or cough GI: No reports of nausea, no reports of vomiting, no diarrhea : No reports of dysuria or retention Neurovascular: No reports of generalized weakness All medications have been reviewed PHYSICAL EXAMINATION: GENERAL: The patient is alert and oriented x4, Well developed, thin built and HEENT: Pupils are round and equally reacting to light. EOMI. no scleral icterus. No conjunctival pallor. Normocephalic, atraumatic. No pharyngeal erythema. No thyromegaly. CARDIOVASCULAR: S1 and S2 muffled PULMONARY: diminished breath sounds bilaterally with no wheezing or rhonchi noted. ABDOMEN: soft. Nontender on exam. non-distended, normoactive bowel sounds. No palpable organomegaly. MUSCULOSKELETAL: No joint swelling or deformity. EXTREMITIES: No cyanosis, clubbing, or pedal edema. NEUROLOGICAL: Gross neurological examination did not reveal any focal deficits. SKIN: No rashes. Assessment: Chest pain, shortness of breath rule out coronary artery disease Shortness of breath, rule out pulmonary embolism Hyponatremia, improved with gentle hydration Leukocytosis, slightly reactive as patient is afebrile and Decreased TSH with normal free T4, simply sick euthyroid syndrome History of sinus drainage History of anxiety/depression History of family history of DVT GI prophylaxis DVT prophylaxis Full code Plan: Recommend to continue with current medications and management with cardiology following. Patient to continue on telemetry monitoring is scheduled to undergo a stress test with echo today Patient continues to report chest heaviness and will continue supportive care while awaiting for stress test results and cardiology clearance Encourage increase activity as tolerated Will follow-up on repeat labs in the a.m. To discuss with cardiology regarding discharge planning possibly in the next 24 hours The impression and plan of care has been dictated by Anali Castro, nurse practitioner as directed. Dr. Eldon MD I have performed a history and examination and MDM of this patient, discussed the same with the dictator, and agree with the dictator's assessment and plan as written ,documented as a scribe. Based on total visit time, I have performed more than 50% of the visit. Any additional findings or plans will be noted. Objective - Vital Signs Vital signs: Vital Signs Temp 98.2 F 09/19/24 15:00 Pulse 85 09/19/24 15:00 Resp 16 09/19/24 15:00 BP 104/70 09/19/24 15:00 Pulse Ox 99 09/19/24 15:00 FiO2 Intake & Output 09/18/24 09/19/24 09/19/24 18:59 06:59 18:59 Intake Total 480 540 Balance 480 540 Intake: Oral 480 540 Other: Voiding Method Toilet # Voids 3 2 3 - Labs CBC & Chem 7: 09/19/24 04:47 09/19/24 04:47 Labs: Abnormal Lab Results - Last 24 Hours (Table) 09/18/24 09/19/24 09/19/24 Range/Units 18:30 04:47 04:47 WBC 15.68 H (4.50-10.00) X 10*3/uL RBC 3.71 L (4.10-5.20) X 10*6/uL Hgb 11.7 L (12.0-15.0) g/dL Hct 36.1 L (37.2-46.3) % MCV 97.3 H (80.0-97.0) FL MPV 8.9 L (9.5-12.2) FL Neutrophils # (Manual) 9.56 H (1.80-7.70) X 10*3/uL Lymphocytes # (Manual) 5.49 H (0.90-5.00) X 10*3/uL Eosinophils # (Manual) 0 L (0.04-0.35) X 10*3/uL Basophils # (Manual) 0.16 H (0.00-0.10) X 10*3/uL BUN/Creatinine Ratio 28.25 H (12.00-20.00) Ratio Calcium 8.6 L (8.7-10.3) mg/dL Total Bilirubin <0.2 L (0.3-1.2) mg/dL Total Protein 5.3 L (6.2-8.2) g/dL Albumin 3.5 L (3.8-4.9) g/dL Ur Specific [place] >1.050 H (1.001-1.035) Urine Blood Small H (Negative)
[2024-09-20 07:10] VITALS: BP 135/77; PULSE 83; RESP 15; TEMP 98
--- NOTE | 2024-09-20 07:19 | CA ---
Stress Echo Report Fara Bird Age: 53 Gender: F : 1970 Exam Date: 09/19/2024 10:52 Exam Location: [place] Echo Ht (in): 52 Wt (lb): 111 Ordering Physician: Kwesi Carreno MD ([id number]) Referring Physician: Ev CHEW Soil Analyst: MARLI Technologist Procedure CPT: Indication: Chest Pain ICD-9 Codes: Rhythm: Patient History: CP, MIKA, HTN, HIGH CHOL, FAMILY HX, CURRENT TOB. Cardiac Medications: SEE CHART,,,,, Medications in past 24 hours: Contrast: Stress Results Protocol: Mukul Total dose(mL): Exercise Duration (min:sec): Max ST Depression (mm): Angina Score: Doran Score: METS: 10.3 Resting HR: 98 Resting BP: 103 / 77 Peak HR: 165 Peak BP: 154 / 101 Max Predicted HR: 165 100 % Max Predicted HR Target HR: 140 Double Product: 15133 Stress Summary: BP Response: Reason for Termination: MAX EXERTION/TARGET HR Cardiac Symptoms: NO SYMPTOMS ECG Analysis Resting ECG: Normal sinus rhythm normal axis normal intervals Stress ECG: Patient exercised on Mukul protocol for 9 minutes achieving 10 METS 85% of predicted maximal heart rate without chest pain or diagnostic ST segment depression Arrhythmia: Echo Analysis Resting Echo: Normal left ventricular size wall motion and systolic function Peak Echo Analysis: Technically suboptimal peak echo images but no large areas of wall motion abnormalities noted MEASUREMENTS (Male/Female) Normal Values CONCLUSIONS Excellent exercise tolerance Negative stress test by EKG criteria Technically suboptimal echo images Dr. Kwesi Carreno MD (Electronically Signed) Final Date: 20 September 2024 07:19
[2024-09-20 07:42] LABS: Anion Gap 12.30 mmol/L (4.00-12.00); BUN/Creat Ratio 23.11 Ratio (12.00-20.00); Basophils # (A) 0.11 X 10*3/uL (0.00-0.10); Basophils % (A) 1.1 %; Blood Urea Nitrogen 20.8 mg/dL (9.0-27.0); Calcium 9.3 mg/dL (8.7-10.3); Carbon Dioxide 27.7 mmol/L (21.6-31.8); Chloride 104 mmol/L (96-109); Eosinophils # (A) 0.24 X 10*3/uL (0.04-0.35); Eosinophils % (A) 2.4 %; Glucose 98 mg/dL (70-110); HCT 39.5 % (37.2-46.3); HGB 13.1 g/dL (12.0-15.0); Immature Grans, Automated 0.20 %; Lymphocytes # (A) 4.94 X 10*3/uL (0.90-5.00); Lymphocytes % (A) 49.1 %; MCH 31.9 pg (27.0-32.0); MCHC 33.2 g/dL (32.0-37.0); MCV 96.1 FL (80.0-97.0); Monocytes # (A) 0.82 X 10*3/uL (0.20-1.00); Monocytes % (A) 8.2 %; NRBC Per 100 WBC 0 X 10*3/uL (0.00-0.01); Neutrophils # (A) 3.93 X 10*3/uL (1.80-7.70); Neutrophils % (A) 39.0 %; Platelet Count 335 X 10*3/uL (140-440); Potassium 4.5 mmol/L (3.5-5.5); RBC 4.11 X 10*6/uL (4.10-5.20); RDW 12.5 % (11.5-14.5); Sodium 144 mmol/L (135-145); WBC 10.06 X 10*3/uL (4.50-10.00)
--- NOTE | 2024-09-20 09:44 | XR ---
EXAMINATION TYPE: XR chest 1V portable DATE OF EXAM: 09/20/2024 9:38 AM COMPARISON: 09/17/2024 CLINICAL INDICATION: Female, 53 years old with history of shortness of breath, TECHNIQUE: XR chest 1V portable views of the chest are obtained. FINDINGS: Demonstrated are scattered senescent parenchymal change. There is no evidence for focal infiltrate. The heart is stable. Hilar and mediastinal structures are within normal limits. Degenerative changes are seen of the dorsal spine. IMPRESSION: 1. Chronic changes without evidence for acute pulmonary disease. [facility], , 09/20/2024 9:42 AM
--- NOTE | 2024-09-20 11:14 | CA ---
Transthoracic Echo Report Name: Fara Bird Age: 53 Gender: F : 1970 Exam Date: 09/20/2024 08:39 Exam Location: [place] Echo Ht (in): 62 Wt (lb): 110 Ordering Physician: Mendy Jung Attending/Referring Phys: [id number], Fabiana Gauge Maker Apprentice Pratima Boyd, PIEDAD Procedure CPT: Indications: shortness of breath, cp Cardiac Hx: Technical Quality: Good Contrast 1: Total Dose (mL): Contrast 2: Total Dose (mL): MEASUREMENTS (Male / Female) Normal Values 2D ECHO LV Diastolic Diameter PLAX 3.7 cm 4.2 - 5.9 / 3.9 - 5.3 cm LV Systolic Diameter PLAX 2.1 cm IVS Diastolic Thickness 0.9 cm 0.6 - 1.0 / 0.6 - 0.9 cm LVPW Diastolic Thickness 1.0 cm 0.6 - 1.0 / 0.6 - 0.9 cm LV Relative Wall Thickness 0.5 RV Internal Dim ED PLAX 1.7 cm LA Systolic Diameter LX 2.6 cm 3.0 - 4.0 / 2.7 - 3.8 cm LV Diastolic Volume MOD BP 33.4 cm??? 67 - 155 / 56 - 104 cm??? LV Systolic Volume MOD BP 10.9 cm??? 22 - 58 / 19 - 49 cm??? LV Ejection Fraction MOD BP 67.5 % >= 55 % LV Cardiac Index MOD BP 1146.6 cm???/min???m??? LV Diastolic Volume MOD 4C 40.2 cm??? LV Systolic Volume MOD 4C 7.7 cm??? LV Ejection Fraction MOD 4C 80.7 % LV Cardiac Index MOD 4C 1647.2 cm???/min???m??? LV Diastolic Length 4C 7.2 cm LV Systolic Length 4C 5.5 cm LV Diastolic Volume MOD 2C 27.1 cm??? LV Systolic Volume MOD 2C 13.6 cm??? LV Ejection Fraction MOD 2C 49.9 % LV Cardiac Index MOD 2C 688.4 cm???/min???m??? LV Diastolic Length 2C 7.0 cm LV Systolic Length 2C 6.2 cm M-MODE Aortic Root Diameter MM 2.6 cm LA Systolic Diameter MM 2.5 cm LA Ao Ratio MM 0.9 DOPPLER Mitral E Point Velocity 70.2 cm/s Mitral A Point Velocity 70.7 cm/s Mitral E to A Ratio 1.0 MV Deceleration Time 250.3 ms MV E' Velocity 6.3 cm/s Mitral E to MV E' Ratio 11.2 FINDINGS Left Ventricle Left ventricular ejection fraction is estimated at 55-60%. Mildly increased posterior wall thickness. Normal left ventricular systolic function with no obvious regional wall motion abnormalities. Left ventricular cavity size normal. Right Ventricle Normal right ventricular size and function. Right ventricular systolic pressure within normal limits. Right Atrium Normal right atrial size. Left Atrium Normal left atrial size. Mitral Valve Structurally normal mitral valve. Trace to mild mitral regurgitation. No mitral stenosis. Aortic Valve Trileaflet aortic valve. No aortic valve stenosis or regurgitation. Tricuspid Valve Structurally normal tricuspid valve. Trace to mild tricuspid regurgitation. No tricuspid stenosis. Pulmonic Valve Structurally normal pulmonic valve. Trace pulmonic regurgitation. No pulmonic stenosis. Pericardium No pericardial or pleural effusion. Aorta Normal size aortic root and proximal ascending aorta. CONCLUSIONS Normal LV function Previewed by: Dr. Kwesi Carreno MD (Electronically Signed) Final Date: 20 September 2024 11:13
--- NOTE | 2024-09-20 11:48 | P.PN ---
Subjective HISTORY OF PRESENT ILLNESS: Patient examined this morning at the bedside. Patient continues to report shortness of breath. She denies any chest pain or pressure. She underwent stress echocardiogram yesterday which was negative for ischemia. Echocardiogram completed revealing ejection fraction 55 to 60%, trace to mild TR, trace to mild MR. PHYSICAL EXAM: VITAL SIGNS: Reviewed. GENERAL: Well-developed in no acute distress. NECK: Supple. No JVD or thyromegaly LUNGS: Respirations even and unlabored. Lungs essentially clear to auscultation bilaterally. HEART: Regular rate and rhythm. S1 and S2 heard. EXTREMITIES: Normal range of motion. No clubbing or cyanosis. Peripheral pulses intact. No lower extremity edema ASSESSMENT: Chest pain, status post negative stress echocardiogram Shortness of breath, etiology unclear Hypertension Hyperlipidemia PLAN: Continue current cardiac medications Patient is stable for discharge home today from a cardiac standpoint with no further inpatient recommendations We will sign off. Please reconsult if needed. Nurse practitioner note has been reviewed by physician. Signing provider agrees with the documented findings, assessment, and plan of care documented by MILK HOUSE WORKER as a scribe. Objective - Vital Signs Vital signs: Vital Signs Temp 98.0 F 09/20/24 07:00 Pulse 83 09/20/24 07:00 Resp 15 09/20/24 07:00 BP 135/77 09/20/24 07:00 Pulse Ox 98 09/20/24 07:00 FiO2 Intake & Output 09/19/24 09/20/24 09/20/24 18:59 06:59 18:59 Intake Total 320 Balance 320 Intake: Oral 320 Other: Voiding Method Toilet Toilet # Voids 3 1 - Labs CBC & Chem 7: 09/20/24 04:38 09/20/24 04:38 Labs: Abnormal Lab Results - Last 24 Hours (Table) 09/20/24 09/20/24 Range/Units 04:38 04:38 WBC 10.06 H (4.50-10.00) X 10*3/uL MPV 8.7 L (9.5-12.2) FL Basophils # 0.11 H (0.00-0.10) X 10*3/uL Anion Gap 12.30 H (4.00-12.00) mmol/L BUN/Creatinine Ratio 23.11 H (12.00-20.00) Ratio
--- NOTE | 2024-09-22 01:54 | P.DS ---
Providers Date of admission: 09/17/24 19:05 Expected date of discharge: 09/20/24 Attending physician: Uvaldo Colón Consults: 09/17/24 19:05 Consult Physician Routine Consulting Provider: Noé May Consult Reason/Comments: cp Do you want consulting provider notified?: Yes Primary care physician: Zeoy Mccann [facility] Course: Final diagnosis Chest pain, shortness of breath ruled out ACS, status post negative stress test Shortness of breath, ruled out pulmonary embolism, likely COPD exacerbation Hyponatremia, improved Leukocytosis, slightly reactive as patient is afebrile Decreased TSH with normal free T4, simply sick euthyroid syndrome History of sinus drainage History of anxiety/depression Continued ongoing nicotine abuse History of family history of DVT GI prophylaxis DVT prophylaxis Full code Discharge disposition Patient is being discharged in a stable condition with guarded prognosis to home. Patient will follow-up with Dr. Mccann in the outpatient setting upon discharge. Patient is to continue with current medications and outpatient follow-up with cardiology as well as pulmonary as scheduled. Total time taken is greater than 35 minutes. Hospital course This is a 53-year-old female who was recently admitted with chest heaviness along with shortness of breath being closely monitored with cardiology following. Patient is to undergo stress test with echo today which is pending. Patient is maintained on telemetry monitoring continues to report some chest pressure and will be monitored closely. Patient to continue on current cardiac medications and will await cardiology clearance to discuss discharge planning. 09/20/2024 Patient seen in follow-up and evaluated with cardiology recommending outpatient follow-up. Patient stress testing was negative and echo was noted. Please refer to cardiology consultation notes for further HPI. Patient denies any further chest pain or worsening shortness of breath. Patient is afebrile with no reports of nausea or vomiting. Would recommend outpatient follow-up with cardiology as well as pulmonary. PHYSICAL EXAMINATION: GENERAL: The patient is alert and oriented x4, Well developed, thin built HEENT: Pupils are round and equally reacting to light. EOMI. no scleral icterus. No conjunctival pallor. Normocephalic, atraumatic. No pharyngeal erythema. No thyromegaly. CARDIOVASCULAR: S1 and S2 muffled PULMONARY: diminished breath sounds bilaterally with no wheezing or rhonchi noted. ABDOMEN: soft. Nontender on exam. non-distended, normoactive bowel sounds. No palpable organomegaly. MUSCULOSKELETAL: No joint swelling or deformity. EXTREMITIES: No cyanosis, clubbing, or pedal edema. NEUROLOGICAL: Gross neurological examination did not reveal any focal deficits. SKIN: No rashes. Please refer to medication reconciliation sheet for a list of medications. The impression and plan of care has been dictated by Anali Castro, Nurse Practitioner as directed. Dr. Eldon MD I have performed a history and examination and MDM of this patient, discussed the same with the dictator, and agree with the dictator's assessment and plan as written ,documented as a scribe. Based on total visit time, I have performed more than 50% of the visit. Patient Condition at Discharge: Fair Plan - Discharge Summary Discharge Rx Participant: No New Discharge Prescriptions: New Ipratropium/Albuter 20-100Mcg [Combivent Respimat 20-100Mcg Inhaler] 1 puff INHALATION BID 30 Days #4 gm Continue Rosuvastatin [Crestor] 20 mg PO DAILY Olmesartan Medoxomil 40 mg PO DAILY Discharge Medication List Olmesartan Medoxomil 40 mg PO DAILY 09/17/24 [History] Rosuvastatin [Crestor] 20 mg PO DAILY 09/17/24 [History] Ipratropium/Albuter 20-100Mcg [Combivent Respimat 20-100Mcg Inhaler] 1 puff INHALATION BID 30 Days #4 gm 09/20/24 [Rx] Follow up Appointment(s)/Referral(s): Zoey Mccann III, MD [Primary Care Provider] - 1-2 days Kwesi Carreno MD [STAFF PHYSICIAN] - 10/06/24 3:15 pm Ry Field MD [STAFF PHYSICIAN] - 1 Week (Follow-up outpatient for further PFT testing) Ambulatory/Diagnostic Orders: Basic Metabolic Panel [LAB.AMB] Time Frame: 3 Days, Location: None Selected Patient Instructions/Handouts: Chest Pain (DC), COPD (Chronic Obstructive Pulmonary Disease) (DC) Activity/Diet/Wound Care/Special Instructions: activity limited until follow-up Follow-up with primary care provider on discharge Follow-up cardiology outpatient follow-up with pulmonary outpatient for possible PFT testing Recommend complete tobacco cessation Discharge Disposition: HOME SELF-CARE
== END 2024-09-20 14:21 | disposition home or self-care (01) ==
LOC: EC 16:38 → 6NMEDSUR 19:05
PROVIDERS: ADMIT Hospitalist; ATTEND Hospitalist
DX: R07.2 Precordial pain (principal); R06.02 Shortness of breath; E87.1 Hypo-osmolality and hyponatremia; E07.81 Sick-euthyroid syndrome; I10 Essential (primary) hypertension; E78.5 Hyperlipidemia, unspecified; F41.9 Anxiety disorder, unspecified; F32.A Depression, unspecified; F17.200 Nicotine dependence, unspecified, uncomplicated; Z79.899 Other long term (current) drug therapy; Z82.49 Family history of ischemic heart disease and other diseases of the circulatory system
CPT/HCPCS: 96376; 96361 ×2; 96374; 96375; 99285; 36415; 94640; 93005; 93306; 93351; 85379; 84439; 83880; 80053 ×2; 80048; 85652; 84443; 83735; 84484 ×2; 85025 ×3; 85610; 85730; 86140; 81001; 87636; 71045; 71046; 71275; G0378 ×4; J1885 ×2; Q9967; J2919

== ENCOUNTER → 2024-10-03 | Outpatient (CLI) | payer BC ==
--- NOTE | 2024-10-03 08:24 | US ---
EXAMINATION TYPE: US carotid duplex BILAT DATE OF EXAM: 10/03/2024 COMPARISON: NONE CLINICAL INDICATION: Female, 53 years old with history of R40.4 TRANSIENT ALTERATION OF AWARENESS R42 ; weakness and dizziness TECHNIQUE: Grayscale, color Doppler and spectral Doppler evaluation of the bilateral carotid systems and vertebral arteries. Indirect Doppler criteria was utilized. FINDINGS: EXAM MEASUREMENTS: RIGHT: Peak Systolic Velocity (PSV) cm/sec ----- Right CCA: 83.1 ----- Right ICA: 107.3 ----- Right ECA: 62.5 ICA/CCA ratio: 1.3 RIGHT: End Diastole cm/sec ----- Right CCA: 39.1 ----- Right ICA: 44.6 ----- Right ECA: 16.2 LEFT: Peak Systolic Velocity (PSV) cm/sec ----- Left CCA: 94.7 ----- Left ICA: 101.8 ----- Left ECA: 55.5 ICA/CCA ratio: 1.1 LEFT: End Diastole cm/sec ----- Left CCA: 44.4 ----- Left ICA: 46.8 ----- Left ECA: 19.7 VERTEBRALS (direction of flow): Right Vertebral: Antegrade Left Vertebral: Antegrade Rhythm: Normal IMPRESSION: No hemodynamically significant internal carotid artery stenosis on either side. Criteria for Assigning % of Stenosis / Diameter reduction (Estimation based on the indirect measurements of the internal carotid artery velocities (ICA PSV). 1. Normal (no stenosis)=ICA PSV < 180 cm/s: ratio < 2.0: ICA EDV<40 cm/s. 2. Less than 50% stenosis=ICA PSV < 180 cm/s: ratio < 2.0: ICA EDV<40 cm/s. 3. 50 to 69% stenosis=ICA PSV of 180 to 230 cm/s: ration 2.0 ? 4.0: ICA EDV 40-100 cm/s. PSV 125-180 cm/sec and ICA/CCA PSV Ratio ? 2.0 is also consistent with 50-69% stenosis 4. Greater than 70% stenosis to near occlusion= ICA PSV > 230 cm/s: ratio > 4.0: ICA EDV > 100 cm/s. 5. Near occlusion= ICA PSV velocities may be low or undetectable: variable ratio and ICA EDV. 6. Total occlusion=unable to detect flow. [facility], , 10/03/2024 8:22 AM
== END | disposition home or self-care (01) ==
LOC: RADUSWWP 07:15
DX: R40.4 Transient alteration of awareness (principal); R42 Dizziness and giddiness
CPT/HCPCS: 93880

== ENCOUNTER → 2024-10-05 | Outpatient (CLI) | payer BC ==
--- NOTE | 2024-10-05 09:43 | CT ---
EXAMINATION TYPE: CT brain wo con DATE OF EXAM: 10/05/2024 9:05 AM COMPARISON: None. CLINICAL INDICATION: Female, 53 years old with history of R40.4 TRANSIENT ALTERATION OF AWARENESS R42 , transparent alterationof awareness, SOB for 3 weeks TECHNIQUE: Brain: Axial CT images of the brain were obtained with coronal and sagittal reformats created and rev iewed. Contrast used: None. Oral contrast used: None. CT DLP: 1138 mGycm, Automated exposure control for dose reduction was used. FINDINGS: Brain: Extra-axial spaces: No abnormal extra-axial fluid collections. Ventricular system: Within normal limits Cerebral parenchyma: No acute intraparenchymal hemorrhage or mass effect. The ashley-white junction is well differentiated. Cerebellum: Unremarkable. Mass effect: No evidence of midline shift. Intracranial vasculature: unremarkable Soft tissues: Normal. Calvarium/osseous structures: No depressed skull fracture. Paranasal sinuses and mastoid air cells: Mild scattered paranasal sinus disease. Visualized orbits: Orbital contents are intact. IMPRESSION: No acute intracranial process. [facility], , 10/05/2024 9:41 AM
== END | disposition home or self-care (01) ==
LOC: RADCTMAIN 08:48
DX: R40.4 Transient alteration of awareness (principal); R42 Dizziness and giddiness
CPT/HCPCS: 70450